=== PATIENT | male | born 1995 | race African-American/Black ===

== ENCOUNTER 2021-02-16 02:16 | Emergency (ER) | payer OTHER ==
[2021-02-16 02:56] VITALS: BP 138/89; PULSE 54; TEMP 98.1; BMI 25.7
[2021-02-16] MEDS ORDERED: ACETAMINOPHEN 500 MG TABLET (FP) PO ONE ×2 (03:21)
[2021-02-16] MEDS ORDERED: IBUPROFEN 600 MG TABLET (FP) PO ONE ×2 (03:21→03:24)
[2021-02-16] MEDS ORDERED: ACETAMINOPHEN 325 MG TABLET (FP) ONE (03:24)
== END 2021-02-16 04:37 | disposition home or self-care (01) ==
LOC: JER 02:16
DX: K08.89 Other specified disorders of teeth and supporting structures (principal); R51.9 Headache, unspecified
CPT/HCPCS: 99283-25